=== PATIENT | female | born 1975 | race Caucasian/White ===

== ENCOUNTER 2018-07-30 23:44 | Emergency (ER) | payer BC, OTHER ==
[~2018-07-30] VITALS: Ht 165.1 cm; Wt 65.0 kg
[~2018-07-30 23:44] MED LIST: DIAZ10TA PO; ESCI20TA10 PO; METH10TA2 PO; OXYC-307 PO
--- NOTE | 2018-07-30 23:55 | NUR ---
BIB [facility] FROM HOME WITH C/O NON RADIATING CHEST PRESSURE, H/A, AND BODY THROBBING X 3DAYS. MONITORS APPLIED, SIDERAILS UP X2, CALL LIGHT WITHIN REACH. AWAITING ERP FOR EVAL AND ORDERS
--- NOTE | 2018-07-31 00:26 | NUR ---
PT TO XRAY
[2018-07-31 00:44] LABS: BASOPHILS # (AUTO) 0.04 x10^3/uL (0-0.1); BASOPHILS % (AUTO) 1 % (0-1); EOSINOPHILS # (AUTO) 0.07 x10^3/uL (0-0.4); EOSINOPHILS % (AUTO) 1 % (1-7); LYMPHOCYTES # (AUTO) 1.94 x10^3/uL (1-3.4); LYMPHOCYTES % (AUTO) 26 % (22-44); MD NO; MEAN CORPUSCULAR HEMOGLOBIN 31.9 pg (27.0-34.8); MEAN CORPUSCULAR HGB CONC 33.6 g/dL (32.4-35.8); MEAN CORPUSCULAR VOLUME 95.1 fL (80-100); MEAN PLATELET VOLUME 8.2 fL (7.4-10.4); MONOCYTES # (AUTO) 0.55 x10^3/uL (0.2-0.8); MONOCYTES % (AUTO) 7 % (2-9); NEUTROPHILS # (AUTO) 4.89 x10^3/uL (1.8-6.8); NEUTROPHILS % (AUTO) 65 % (42-75); PLATELET COUNT 272 x10^3/uL (130-400); RED BLOOD COUNT 4.37 x10^6/uL (3.82-5.3); RED CELL DISTRIBUTION WIDTH 14.7 % (9.6-15.2)
[2018-07-31 00:56] LABS: ALANINE AMINOTRANSFERASE 13 U/L (12-78); ALBUMIN 3.3 g/dL (3.4-5.0); ANION GAP 6 mmol/L (5-15); CALCIUM 8.4 mg/dL (8.5-10.1); CHLORIDE 110 mmol/L (98-107); CREATININE 0.63 mg/dL (0.55-1.02)
[2018-07-31] MEDS ORDERED: MELO15TA24 PO (00:56)
[2018-07-31] MEDS ORDERED: SPIR25TA5 PO (00:56)
--- NOTE | 2018-07-31 00:57 | NUR ---
PT RESTING ON GURISABELLE, DENIES NEEDS AT THIS TIME, CALL LIGHT WITHIN REACH, AWAITING LAB RESULTS
[2018-07-31] MEDS ORDERED: METO50TA82 PO (00:58)
[2018-07-31 01:00] LABS: ALKALINE PHOSPHATASE 49 U/L (45-117); BILIRUBIN,TOTAL 0.3 mg/dL (0.2-1.0); TOTAL PROTEIN 6.4 g/dL (6.4-8.2); TROPONIN I < 0.015 ng/mL (0.000-0.045)
[2018-07-31] MEDS ORDERED: LORazepam 1MG TABLET PO ONE (02:00)
[2018-07-31] MEDS ORDERED: LORazepam 1MG TABLET ONE (02:40)
[2018-07-31 02:44] VITALS: BP 116/68
--- NOTE | 2018-07-31 02:44 | NUR ---
PT MEDICATED PER MAR
== END 2018-07-31 03:11 | disposition home or self-care (01) ==
LOC: ED 23:59
DX: R07.89 Other chest pain (principal); F41.1 Generalized anxiety disorder; I10 Essential (primary) hypertension; F17.200 Nicotine dependence, unspecified, uncomplicated
CPT/HCPCS: 36415; 71046; 80053; 84484; 84703; 85025; 93005; 99284